=== PATIENT | female | born 1975 | race Two or more races ===

== ENCOUNTER 2023-06-05 09:41 | Outpatient (CLI) | payer OTHER | END 2023-06-05 09:57 | disposition home or self-care (01) | LOC: MAMO-SONO 09:41 | PROVIDERS: ATTEND Obstetrics & Gynecology | DX: N63.0 Unspecified lump in unspecified breast (principal); N64.59 Other signs and symptoms in breast; N64.9 Disorder of breast, unspecified; Z12.31 Encounter for screening mammogram for malignant neoplasm of breast; N94.0 Mittelschmerz; R10.2 Pelvic and perineal pain; N94.89 Other specified conditions associated with female genital organs and menstrual cycle ==

== ENCOUNTER 2023-06-13 10:01 | Outpatient (CLI) | payer OTHER ==
[2023-06-13 10:58] LABS: HEMATOCRIT 33.9 % (36.0-45.00); HEMOGLOBIN 11.4 g/dL (12.0-15.00); MEAN CELL VOLUME 85.7 fL (80.00-100.00); MEAN CORPUSCULAR HEMOGLOBIN 28.9 pg (27.00-32.0); MEAN CORPUSCULAR HGB CONC 33.7 g/dl (32.0-36.0); PLATELET COUNT 212 K/uL (150-450); RED BLOOD COUNT 3.96 M/uL (4.00-6.00); RED CELL DISTRIBUTION WIDTH 16.2 % (11.5-14.5)
[2023-06-13 11:01] LABS: ob NEGATIVE (NEGATIVE)
[2023-06-13 11:05] LABS: PH,URINE 7.5 (5.0-8.0); URINE APPEARANCE Clear; URINE BILIRRUBIN Negative (NEGATIVE); URINE BLOOD Negative; URINE COLOR Yellow; URINE GLUCOSE Negative (NEGATIVE); URINE LEUKOCYTE Moderate; URINE NITRATE Negative; URINE PROTEIN Negative (NEGATIVE); URINE UROBILINOGEN 0.2 E.U./dl
[2023-06-13 11:06] LABS: URINE BACTERIA 284.6 uL (0.0-1933); URINE EPITHELIAL CELLS 17.3 uL (0.0-38.8); URINE WBC 16.3 uL (0.0-23.2)
[2023-06-13 11:42] LABS: ALBUMIN 3.9 gm/dL (3.4-5.0); BILIRUBIN TOTAL 0.75 mg/dL (0.3-1.2); CALCIUM 9.4 mg/dL (8.5-10.1); CHOL HDL RATIO 1.8 (0-5.0); CREATININE SERUM 0.64 mg/dL (0.55-1.02); GFR 99.04; GLOBULINA 3.3 G/DL (2.4-3.5); POTASSIUM 3.35 mEq/L (3.5-5.1); T4 FREE 1.26 NG/ML (0.76-1.46); TOTAL PROTEIN 7.2 gm/dL (6.4-8.2); TSH 0.984 uIU/mL (0.358-3.74)
== END 2023-06-13 10:06 | disposition home or self-care (01) ==
LOC: LAB 10:01
PROVIDERS: ATTEND Obstetrics & Gynecology
DX: Z00.00 Encounter for general adult medical examination without abnormal findings (principal); I10 Essential (primary) hypertension; E03.9 Hypothyroidism, unspecified; E78.00 Pure hypercholesterolemia, unspecified; N39.0 Urinary tract infection, site not specified; Z11.4 Encounter for screening for human immunodeficiency virus [HIV]; Z12.11 Encounter for screening for malignant neoplasm of colon; E55.9 Vitamin D deficiency, unspecified; Z21 Asymptomatic human immunodeficiency virus [HIV] infection status; R79.9 Abnormal finding of blood chemistry, unspecified; R79.89 Other specified abnormal findings of blood chemistry

== ENCOUNTER 2023-07-04 07:44 | Outpatient (CLI) | payer OTHER ==
[2023-07-04 09:45] LABS: ALBUMIN 3.7 gm/dL (3.4-5.0); BILIRUBIN TOTAL 0.48 mg/dL (0.3-1.2); BILIRUBIN,CONJUGATED 0.16 mg/dL (0.0-0.2); BILIRUBIN,UNCONJUGATED 0.32 mg/dL (0.0-0.6)
== END 2023-07-04 07:46 | disposition home or self-care (01) ==
LOC: LAB 07:44
DX: R74.01 Elevation of levels of liver transaminase levels (principal)

== ENCOUNTER 2023-07-04 08:19 | Outpatient (CLI) | payer OTHER | END 2023-07-04 08:37 | disposition home or self-care (01) | LOC: RAD 08:19 | DX: M25.521 Pain in right elbow (principal) ==

== ENCOUNTER 2023-10-29 19:11 | Emergency (ER) | payer OTHER ==
[~2023-10-29] VITALS: Ht 172.7 cm; Wt 69.9 kg
[2023-10-29] MEDS ORDERED: ATACAND HCT 321 EACH PO (19:46)
[2023-10-29] MEDS ORDERED: PROTONIX40 M1 PO (19:46)
[2023-10-29 20:48] LABS: PH,URINE 6.5 (5.0-8.0); URINE BILIRRUBIN Negative (NEGATIVE); URINE BLOOD Negative; URINE COLOR Yellow; URINE GLUCOSE Negative (NEGATIVE); URINE LEUKOCYTE Trace; URINE NITRATE Negative; URINE PROTEIN Negative (NEGATIVE); URINE UROBILINOGEN 0.2 E.U./dl
[2023-10-29 20:52] LABS: HEMATOCRIT 36.6 % (36.0-45.00); HEMOGLOBIN 12.3 g/dL (12.0-15.00); MEAN CORPUSCULAR HEMOGLOBIN 28.1 pg (27.00-32.0); MEAN CORPUSCULAR HGB CONC 33.5 g/dl (32.0-36.0); PLATELET COUNT 239 K/uL (150-450); RED BLOOD COUNT 4.35 M/uL (4.00-6.00); RED CELL DISTRIBUTION WIDTH 18.6 % (11.5-14.5)
[2023-10-29 20:52] LABS: URINE BACTERIA 234.3 uL (0.0-1933); URINE EPITHELIAL CELLS 2.9 uL (0.0-38.8); URINE WBC 15.4 uL (0.0-23.2)
[2023-10-29 20:53] LABS: URINE APPEARANCE CLEAR; URINE RBC 0.4 uL (0.0-20.8)
[2023-10-29 21:06] LABS: CALCIUM 8.9 mg/dL (8.5-10.1); CREATININE SERUM 0.66 mg/dL (0.55-1.02); GFR 95.19; POTASSIUM 3.42 mEq/L (3.5-5.1)
== END 2023-10-29 22:38 | disposition home or self-care (01) ==
LOC: ER 19:11
PROVIDERS: Emergency Medicine
DX: R42 Dizziness and giddiness (principal); R53.81 Other malaise; E16.2 Hypoglycemia, unspecified

== ENCOUNTER 2023-11-04 13:18 | Outpatient (CLI) | payer OTHER ==
[~2023-11-04 13:18] MED LIST: ATACAND HCT 321 EACH PO; PROTONIX40 M1 PO
== END 2023-11-04 13:22 | disposition home or self-care (01) ==
LOC: RAD 13:18
DX: I11.9 Hypertensive heart disease without heart failure (principal)

== ENCOUNTER 2023-11-05 06:45 | Outpatient (CLI) | payer OTHER ==
[2023-11-05 08:01] LABS: HEMATOCRIT 35.5 % (36.0-45.00); HEMOGLOBIN 11.9 g/dL (12.0-15.00); MEAN CELL VOLUME 85.5 fL (80.00-100.00); MEAN CORPUSCULAR HEMOGLOBIN 28.6 pg (27.00-32.0); MEAN CORPUSCULAR HGB CONC 33.5 g/dl (32.0-36.0); PLATELET COUNT 244 K/uL (150-450); RED BLOOD COUNT 4.15 M/uL (4.00-6.00); RED CELL DISTRIBUTION WIDTH 17.7 % (11.5-14.5)
[2023-11-05 08:41] LABS: ALBUMIN 3.9 gm/dL (3.4-5.0); BILIRUBIN TOTAL 0.53 mg/dL (0.3-1.2); BILIRUBIN,CONJUGATED 0.14 mg/dL (0.0-0.2); BILIRUBIN,UNCONJUGATED 0.39 mg/dL (0.0-0.6); T4 FREE 1.21 NG/ML (0.76-1.46); TSH 1.02 uIU/mL (0.358-3.74)
== END 2023-11-05 13:18 | disposition home or self-care (01) ==
LOC: LAB 06:45
DX: R42 Dizziness and giddiness (principal); E16.2 Hypoglycemia, unspecified; D50.0 Iron deficiency anemia secondary to blood loss (chronic); I10 Essential (primary) hypertension; R74.8 Abnormal levels of other serum enzymes; R79.0 Abnormal level of blood mineral; R73.01 Impaired fasting glucose

== ENCOUNTER 2024-08-05 07:45 | Outpatient (CLI) | payer OTHER | END 2024-08-05 07:58 | disposition home or self-care (01) | LOC: MRI 07:45 | DX: M54.59 Other low back pain (principal) | CPT/HCPCS: 72148 ==

== ENCOUNTER → 2024-09-10 08:53 | Outpatient (CLI) | payer OTHER ==
[2024-09-10 10:39] LABS: URINE APPEARANCE Clear; URINE BILIRRUBIN Negative (NEGATIVE); URINE BLOOD Negative; URINE COLOR Yellow; URINE GLUCOSE Negative (NEGATIVE); URINE KETONE Negative (NEGATIVE); URINE LEUKOCYTE Small; URINE NITRATE Negative; URINE PROTEIN Negative (NEGATIVE); URINE UROBILINOGEN 0.2 E.U./dl
[2024-09-10 10:41] LABS: URINE BACTERIA 217.8 uL (0.0-1933); URINE EPITHELIAL CELLS 36.3 uL (0.0-38.8); URINE RBC 2.3 uL (0.0-20.8); URINE WBC 5.5 uL (0.0-23.2)
[2024-09-10 10:45] LABS: URINE CAST 0.14 uL (0.0-1.40)
[2024-09-10 11:50] LABS: HEMATOCRIT 33.3 % (36.0-45.00); MEAN CELL VOLUME 80.4 fL (80.00-100.00); MEAN CORPUSCULAR HEMOGLOBIN 26.6 pg (27.00-32.0); MEAN CORPUSCULAR HGB CONC 33.1 g/dl (32.0-36.0); PLATELET COUNT 282 K/uL (150-450); RED BLOOD COUNT 4.15 M/uL (4.00-6.00); RED CELL DISTRIBUTION WIDTH 19.3 % (11.5-14.5)
[2024-09-10 12:33] LABS: ALBUMIN 3.8 gm/dL (3.4-5.0); ALKALINE PHOSPHATASE 63 U/L (50-136); ALT/SGPT 25 U/L (12-78); ANION GAP 8 (10.0-20.0); AST/SGOT 25 U/L (15-37); BILIRUBIN TOTAL 0.39 mg/dL (0.3-1.2); BLOOD UREA NITROGEN 9 mg/dL (7-18); BUN CREA RATIO 17 (7.0-25.0); CALCIUM 8.9 mg/dL (8.5-10.1); CARBON DIOXIDE 32 mEq/L (21-32); CHLORIDE 102 mmol/L (98-107); CHOL HDL RATIO 1.7 (0-5.0); CHOLESTEROL 197 mg/dL (0-200); CREATININE SERUM 0.52 mg/dL (0.55-1.02); GFR 125.33; GLUCOSE FASTING 88 mg/dL (65-100); HCG QUANTITATIVE < 1 mUI/mL (1-3); HDL 114 mg/dl (40-60); LDL 79 mg/dl (0-130); OSMOLALITY SERUM 276 MOSM/KG (275-295); POTASSIUM 3.47 mEq/L (3.5-5.1); SODIUM 139 mmol/L (136-145); T4 FREE 1.08 NG/ML (0.76-1.46); T4 TOTAL 10.48 UG/DL (4.8-13.9); TOTAL PROTEIN 6.8 gm/dL (6.4-8.2); TRIGLYCERIDES 22 mg/dL (0-150); VLDL 4 (0-39)
== END | disposition home or self-care (01) ==
LOC: LAB 08:53
PROVIDERS: ATTEND Obstetrics & Gynecology
DX: E03.9 Hypothyroidism, unspecified (principal); Z00.00 Encounter for general adult medical examination without abnormal findings; I10 Essential (primary) hypertension; E55.9 Vitamin D deficiency, unspecified; Z21 Asymptomatic human immunodeficiency virus [HIV] infection status; R79.9 Abnormal finding of blood chemistry, unspecified; R79.89 Other specified abnormal findings of blood chemistry; Z12.11 Encounter for screening for malignant neoplasm of colon; E03.8 Other specified hypothyroidism; E78.2 Mixed hyperlipidemia

== ENCOUNTER 2024-09-19 11:12 | Outpatient (CLI) | payer OTHER | END 2024-09-19 11:19 | disposition home or self-care (01) | LOC: MAMO-SONO 11:12 | PROVIDERS: ATTEND Obstetrics & Gynecology | DX: N63 Unspecified lump in breast (principal); N64.59 Other signs and symptoms in breast; N64.9 Disorder of breast, unspecified; N94.0 Mittelschmerz; R10.2 Pelvic and perineal pain; N94.89 Other specified conditions associated with female genital organs and menstrual cycle ==

== ENCOUNTER 2024-10-17 05:00 | Day surgery (SDC) | payer OTHER ==
[2024-10-10 09:00] VITALS: BP 127/80
[2024-10-10 09:25] LABS: HEMATOCRIT 33.2 % (36.0-45.00); HEMOGLOBIN 10.6 g/dL (12.0-15.00); MEAN CELL VOLUME 81.7 fL (80.00-100.00); MEAN CORPUSCULAR HGB CONC 31.8 g/dl (32.0-36.0); PLATELET COUNT 250 K/uL (150-450); RED BLOOD COUNT 4.06 M/uL (4.00-6.00); RED CELL DISTRIBUTION WIDTH 18.8 % (11.5-14.5)
[2024-10-10 09:26] LABS: URINE APPEARANCE Clear; URINE BILIRRUBIN Negative (NEGATIVE); URINE BLOOD Negative; URINE COLOR Yellow; URINE GLUCOSE Negative (NEGATIVE); URINE KETONE Negative (NEGATIVE); URINE LEUKOCYTE Trace; URINE NITRATE Negative; URINE PROTEIN Negative (NEGATIVE); URINE UROBILINOGEN 0.2 E.U./dl
[2024-10-10 09:30] LABS: URINE BACTERIA 364.7 uL (0.0-1933); URINE EPITHELIAL CELLS 18.8 uL (0.0-38.8); URINE RBC 2.5 uL (0.0-20.8); URINE WBC 31.9 uL (0.0-23.2)
[2024-10-10 10:03] LABS: ALBUMIN 3.9 gm/dL (3.4-5.0); BILIRUBIN TOTAL 0.6 mg/dL (0.3-1.2); CALCIUM 9.4 mg/dL (8.5-10.1); CREATININE SERUM 0.54 mg/dL (0.55-1.02); GFR 119.5; GLOBULINA 3.1 G/DL (2.4-3.5); POTASSIUM 3.85 mEq/L (3.5-5.1)
[2024-10-10 10:05] LABS: INR 1.02; PARTIAL THROMBOPLASTIN TIME 23.5 SECONDS (22.0-34.0); PROTHROMBIN TIME 11.1 SECONDS (9.0-11.5)
[~2024-10-17 05:00] MED LIST changes: +PROAIR RESPICL90 MCG IH
[2024-10-17] MEDS ORDERED: POVIDONE-IODINE 118 ML BOTT TOP ONE (08:15)
[2024-10-17] MEDS ORDERED: CHLORHEXIDINE GLUCONATE 120 ML BOTTLE TOP ONE (08:15)
[2024-10-17] MEDS ORDERED: ONDANSETRON HCL 2 MG/ML VIAL IV ONE (08:30)
[2024-10-17] MEDS ORDERED: SUGAMMADEX SODIUM 200 MG/2 ML VIAL IV ONE (09:00)
== END 2024-10-17 11:20 | disposition home or self-care (01) ==
LOC: CIR.AMB 05:00
PROVIDERS: ATTEND Obstetrics & Gynecology
DX: N84.0 Polyp of corpus uteri (principal); N93.8 Other specified abnormal uterine and vaginal bleeding; I10 Essential (primary) hypertension; J45.909 Unspecified asthma, uncomplicated; M19.90 Unspecified osteoarthritis, unspecified site

== ENCOUNTER 2025-01-21 20:52 | Emergency (ER) | payer OTHER ==
[~2025-01-21] VITALS: Ht 172.7 cm; Wt 69.4 kg
[2025-01-21] MEDS ORDERED: PROTONIX40 MG PO (21:17)
[2025-01-21] MEDS ORDERED: KETOROLAC TROMETHAMINE 60 MG VIAL IM ONE ×2 (21:43→21:45)
[2025-01-21] MEDS ORDERED: CEFTRIAXONE SODIUM 1,000 MG VIAL ONE (21:43)
[2025-01-21] MEDS ORDERED: LIDOCAINE HCL 1% 10ML VIAL PERCUT ONE (21:45)
[2025-01-21] MEDS ORDERED: CEFTRIAXONE SODIUM 1,000 MG VIAL IM ONE (21:45)
[2025-01-21] MEDS ORDERED: CEFUROXIME500 MG PO (23:36)
[2025-01-21] MEDS ORDERED: PEPCID AC20 MG PO (23:36)
== END 2025-01-21 23:43 | disposition home or self-care (01) ==
LOC: ER 22:05
DX: S01.82XA Laceration with foreign body of other part of head, initial encounter (principal); W01.0XXA Fall on same level from slipping, tripping and stumbling without subsequent striking against object, initial encounter; Y92.018 Other place in single-family (private) house as the place of occurrence of the external cause

== ENCOUNTER 2025-03-21 07:45 | Inpatient (IN) | payer OTHER ==
[~2025-03-21] VITALS: Ht 172.7 cm; Wt 68.5 kg
[~2025-03-21 07:45] MED LIST changes: +CEFUROXIME500 MG PO; +PEPCID AC20 MG PO; +PROTONIX40 MG PO
[2025-03-21 08:25] LABS: BASO % 0.8 % (0.1-1.2); EOS # 0.07 (0.04-0.54); EOS % 1.9 % (0.7-7.0); LYMPH # 1.41 (1.18-3.74); LYMPH % 38.7 % (19.3-53.1); MEAN PLATELET VOLUME 9.70 fl (9.4-12.4); MONO # 0.33 (0.24-0.82); MONO % 9.1 % (4.7-12.5); NEUT # 1.79 (1.56-6.13); NEUT % 49.2 % (34.0-71.1); RED CELL DISTRIBUTION WIDTH 17.0 % (11.6-14.4)
[2025-03-21 08:32] VITALS: BP 118/65
[2025-03-21 08:36] VITALS: BP 119/77
[2025-03-21 08:46] LABS: INR 1.05
[2025-03-21 09:13] LABS: URINE APPEARANCE Clear; URINE BILIRRUBIN Negative (NEGATIVE); URINE BLOOD Negative; URINE COLOR Yellow; URINE GLUCOSE Negative (NEGATIVE); URINE KETONE Negative (NEGATIVE); URINE LEUKOCYTE Small; URINE NITRATE Negative; URINE PROTEIN Negative (NEGATIVE); URINE UROBILINOGEN 0.2 E.U./dl
[2025-03-21 09:14] LABS: URINE BACTERIA 409.0 uL (0.0-1933); URINE EPITHELIAL CELLS 19.5 uL (0.0-38.8); URINE WBC 10.6 uL (0.0-23.2)
[2025-03-21 09:19] LABS: ALT/SGPT 22.0 U/L (12-78); AST/SGOT 22.0 U/L (15-37); BILIRUBIN TOTAL 0.4 mg/dL (0.3-1.2); BUN CREA RATIO 18.0 (7.0-25.0); CREATININE SERUM 0.57 mg/dL (0.55-1.02); GFR 112.27; GLOBULINA 3.4 G/DL (2.4-3.5); GLUCOSE FASTING 110.0 mg/dL (65-100); OSMOLALITY SERUM 275.0 MOSM/KG (275-295)
[2025-03-21 09:28] LABS: URINE CAST 0.00 uL (0.0-1.40); URINE RBC 1.4 uL (0.0-20.8)
[2025-03-27] MEDS ORDERED: CEFAZOLIN SODIUM 1,000 MG VIAL IV ONE (13:45)
[2025-03-27] MEDS ORDERED: SURGIFLO APPLICATOR 1 EACH APPL TOP ONE (14:00)
[2025-03-27] MEDS ORDERED: HEMOSTATIC MATRIX 1 KIT KIT TOP ONE (14:00)
[2025-03-27] MEDS ORDERED: MORPHINE SULFATE 4 MG/ML VIAL IV ONE (15:00)
[2025-03-27] MEDS ORDERED: PROMETHAZINE HCL 50 MG/ML AMPUL IV SCH (16:00)
[2025-03-27] MEDS ORDERED: KETOROLAC TROMETHAMINE 30 MG VIAL IV ONE (16:00)
[2025-03-27] MEDS ORDERED: MORPHINE SULFATE 4 MG/ML CARTRIDGE IV SCH (16:00)
[2025-03-27 17:18] VITALS: BP 118/65
[2025-03-27] MEDS ORDERED: GABAPENTIN 300 MG CAPSULE PO SCH (21:00)
[2025-03-27] MEDS ORDERED: SIMETHICONE 125 MG CAPSULE PO SCH (21:00)
[2025-03-27 21:45] LABS: BASO % 0.5 % (0.1-1.2); EOS # 0.01 (0.04-0.54); EOS % 0.1 % (0.7-7.0); LYMPH # 1.47 (1.18-3.74); LYMPH % 18.6 % (19.3-53.1); MEAN PLATELET VOLUME 9.90 fl (9.4-12.4); MONO # 0.43 (0.24-0.82); MONO % 5.4 % (4.7-12.5); NEUT # 5.93 (1.56-6.13); NEUT % 75.3 % (34.0-71.1); RED CELL DISTRIBUTION WIDTH 17.2 % (11.6-14.4)
[2025-03-28 00:45] VITALS: BP 117/77
[2025-03-28 08:36] VITALS: BP 114/70
== END 2025-03-28 10:37 | disposition home or self-care (01) | DRG 743 ==
LOC: SURH 03-27 07:45 → O/R 03-27 09:00 → OB/GYN 03-27 15:22 → SURH 03-27 15:30 → OB/GYN 03-28 10:37
PROVIDERS: ADMIT Obstetrics & Gynecology; ATTEND Obstetrics & Gynecology
PROC: 0UT7FZZ Resection of Bilateral Fallopian Tubes, Via Natural or Artificial Opening With Percutaneous Endoscopic Assistance (ICD-10-PCS; 2025-03-27)
PROC: 0UT9FZZ Resection of Uterus, Via Natural or Artificial Opening With Percutaneous Endoscopic Assistance (ICD-10-PCS; principal; 2025-03-27 15:30)
DX: D25.1 Intramural leiomyoma of uterus (principal); N80.03 Adenomyosis of the uterus; N84.0 Polyp of corpus uteri; N72 Inflammatory disease of cervix uteri

== ENCOUNTER 2025-04-10 07:40 | Outpatient (CLI) | payer OTHER | END 2025-04-10 07:54 | disposition home or self-care (01) | LOC: SONOGRAMA 07:40 → MAMO-SONO 07:40 → SONOGRAMA 07:54 → MAMO-SONO 07:54 | PROVIDERS: ATTEND Obstetrics & Gynecology | DX: N64.59 Other signs and symptoms in breast (principal); N63 Unspecified lump in breast; N64.9 Disorder of breast, unspecified ==